=== PATIENT | female | born 1965 | race Caucasian/White ===

== ENCOUNTER → 2017-01-21 | Outpatient (CLI) | payer BC ==
--- NOTE | 2017-01-21 09:39 | BD ---
EXAMINATION TYPE: MG DEXA axial skeleton. DATE OF EXAM: 01/21/2017 8:45 AM COMPARISON: NONE CLINICAL HISTORY: Z13.820 BONE DENSITY SCREENING Height: 63.5 Weight: 152 FRAX RISK QUESTIONS: Alcohol (3 or more units per day): NO Family History (Parent hip fracture): NO FRACTURES Glucocorticoids (More than 3mos): NO (Ex: prednisone, prednisolone, methylprednisolone, dexamethasone, and hydrocortisone). History of Fracture in Adulthood: NO Secondary Osteoporosis: NO 1. Type 1 Diabetes: NO 2. Hyperthyroidism: NO 3. Menopause before 45: NO 4. Malnutrition: NO 5. Chronic liver disease: NO Rheumatoid Arthritis: NO Current Tobacco Use: YES RISK FACTORS HISTORY OF: Family History of Osteoporosis: YES, HER MOTHER...BUT NO BROKEN HIP Smoke tobacco: YES, 1/2 PAC DAILY Drink Alcohol: SOCIAL Active: YES Diet low in dairy products/other sources of calcium: NO Postmenopausal woman: YES AT AGE 48 Adrenal Insufficiency: NO MEDICATIONS: Additional Medications: CALCIUM AND VIT D, LEXAPRO, Additional History: NOTHING TO NOTE EXAM MEASUREMENTS: Bone mineral densitometry was performed using the [employer] System. Bone mineral density as measured about the Lumbar spine is: ----- L1-L4(G/cm2): 1.025 T Score Values are as follows: ----- L1: -0.9 ----- L2: -1.9 ----- L3: -1.4 ----- L4: -1.3 ----- L1-L4: -1.3 Bone mineral density BASELINE STUDY FOR HER Bone mineral density about the R hip (g/cm2): 0.818 Bone mineral density about the L hip (g/cm2): 0.861 T Score values are as follows: -----R Neck: -1.9 -----L Neck: -1.9 -----R Intertrochanter: -1.6 -----L Intertrochanter: -1.3 Bone mineral density FIRST BONE DENSITY TEST FOR HER.....BASELINE FRAX %'S: 6.5% FOR MAJOR OSTEOPOROTIC FX AND 1.3% FOR A HIP FX: PROBABILITY OF FX IN 10 YRS TIME IMPRESSION: Osteopenia (T Score between -2.5 and -1 as noted by T score values There is slightly increased risk of fracture and the patient may be considered for treatment. Re-Screen 1-2 years. FOR BOTH OF HER HIPS AND L2 TO L4 OF HER LUMBAR SPINE NOTE: T-SCORE=SD OF THE YOUNG ADULT MEAN.
--- NOTE | 2017-01-22 11:58 | MM ---
Reason for exam: screening (asymptomatic). Last mammogram was performed 1 year ago. History: Patient is postmenopausal. Family history of breast cancer in maternal aunt at age 60. Took hormonal contraceptives for 2 years. Physical Findings: A clinical breast exam by your physician is recommended on an annual basis and results should be correlated with mammographic findings. MG Screening Mammo w CAD Bilateral CC and MLO view(s) were taken. Prior study comparison: January 17, 2016, bilateral MG screening mammo w CAD. December 22, 2014, bilateral MG screening mammo w CAD. August 06, 2011, bilateral digital screening mammo w/CAD. The breast tissue is heterogeneously dense. This may lower the sensitivity of mammography. No significant changes when compared with prior studies. ASSESSMENT: Negative, BI-RAD 1 RECOMMENDATION: Routine screening mammogram of both breasts in 1 year.
== END | disposition home or self-care (01) ==
LOC: RADMAMWWP 07:59
PROVIDERS: ATTEND Obstetrics & Gynecology
DX: Z12.31 Encounter for screening mammogram for malignant neoplasm of breast (principal); Z13.820 Encounter for screening for osteoporosis; M85.80 Other specified disorders of bone density and structure, unspecified site
CPT/HCPCS: 77080; G0202

== ENCOUNTER → 2017-02-07 | Outpatient (CLI) | payer BC ==
--- NOTE | 2017-02-08 08:48 | XR ---
EXAMINATION TYPE: XR ribs RT w pa chest xray DATE OF EXAM: 02/07/2017 4:41 PM COMPARISON: NONE HISTORY: Pain TECHNIQUE: One view of the chest and 4 views of the right ribs are submitted. FINDINGS: Lungs are clear. No pleural effusion or pneumothorax. There is no consolidation. Biapical p leural thickening. No pleural effusion. There is deformity lateral margin of the right fifth rib. No pleural effusion or consolidation. Degenerative change of the spine. IMPRESSION: 1. Hairline minimally displaced fracture lateral margin right fifth rib
== END | disposition home or self-care (01) ==
LOC: RADXRYALE 16:24
PROVIDERS: ATTEND Family Medicine
DX: S22.31XA Fracture of one rib, right side, initial encounter for closed fracture (principal); S20.211A Contusion of right front wall of thorax, initial encounter

== ENCOUNTER → 2017-07-30 | Outpatient (CLI) | payer BC ==
--- NOTE | 2017-07-31 09:37 | US ---
EXAMINATION TYPE: US thyroid st tissue head/neck DATE OF EXAM: 07/30/2017 COMPARISON: NONE CLINICAL HISTORY: R59.1 Lymphadenopathy of Head/Neck. Vertigo [address] felt neck seemed swollen GLAND SIZE: Right Lobe: 5.1 x 2.0 x 2.4 cm Overall Parenchyma: heterogenous Left Lobe: 4.3 x 1.9 x 2.2 cm Overall Parenchyma: heterogeneous Isthmus Thickness: 0.5 cm NODULES RIGHT: # of nodules measured on right: 3 1. 0.9 X 0.7 x 0.7 cm echogenic solid nodule at the lower pole with well-defined margins; This nod ule is round and shows no intranodular vascularity. Prior size: no prior 2. 0.4 X 0.4 x 0.4 cm hypoechoic mixed nodule at the mid pole with well-defined margins; . This nod ule is wider than tall and shows no intranodular vascularity. Prior size: no prior 3. 0.3 X 0.4 x 0.5 cm mixed nodule at the upper pole with poorly defined margins; . This nodule is irregular and shows no intranodular vascularity. Prior size: no prior LEFT: # of nodules measured on left: 1. 0.5 X 0.5 x 0.4 cm solid nodule at the lower pole with poorly defined margins; . This nodule is round and shows no intranodular vascularity. Prior size: no prior ISTHMUS: # of nodules measured in the isthmus: 0 Bilateral neck scanned, no evidence of lymphadenopathy. Possible lymph nodes geraldine sub mandibular both sides look the same IMPRESSION: 1. Ill-defined subcentimeter nodules bilateral thyroid lobes.
== END | disposition home or self-care (01) ==
LOC: RADUSWWP 16:39
PROVIDERS: ATTEND Family Medicine
DX: E04.2 Nontoxic multinodular goiter (principal); R42 Dizziness and giddiness; F17.210 Nicotine dependence, cigarettes, uncomplicated
CPT/HCPCS: 76536

== ENCOUNTER → 2018-02-03 | Outpatient (CLI) | payer OTHER ==
--- NOTE | 2018-02-04 09:34 | MM ---
Reason for exam: screening (asymptomatic). Last mammogram was performed 1 year ago. History: Patient is postmenopausal. Family history of breast cancer in maternal aunt at age 60. Took hormonal contraceptives for 2 years. Physical Findings: A clinical breast exam by your physician is recommended on an annual basis and results should be correlated with mammographic findings. MG 3D Screening Mammo W/Cad Bilateral CC and MLO view(s) were taken. Prior study comparison: January 21, 2017, bilateral MG screening mammo w CAD. January 17, 2016, bilateral MG screening mammo w CAD. The breast tissue is heterogeneously dense. This may lower the sensitivity of mammography. There is no discrete abnormality. No significant changes when compared with prior studies. ASSESSMENT: Negative, BI-RAD 1 RECOMMENDATION: Routine screening mammogram of both breasts in 1 year.
== END | disposition home or self-care (01) ==
LOC: RADMAMWWP 10:39
PROVIDERS: ATTEND Obstetrics & Gynecology
DX: Z12.31 Encounter for screening mammogram for malignant neoplasm of breast (principal)
CPT/HCPCS: 77063; 77067

== ENCOUNTER → 2018-03-26 | Outpatient (CLI) | payer OTHER ==
--- NOTE | 2018-03-26 19:43 | MR ---
EXAMINATION TYPE: MR cervical spine wo con DATE OF EXAM: 03/26/2018 COMPARISON: NONE HISTORY: Neck and Left shoulder pain x6 months TECHNIQUE: Multiplanar, multisequence images of the cervical spine were acquired. C2-C3: No disc herniation or canal stenosis. Mild facet arthropathy in the left noted. C3-C4: There is an annular tear and focal right paracentral small disc herniation but no spinal cord contact. Mild facet arthropathy and uncovertebral joint hypertrophy contributes to mild bilateral for aminal encroachment. C4-C5: Degenerative disc disease and anterior hypertrophic spurring. Broad-based disc protrusion or s mall herniation with mild effacement of thecal sac. No foraminal encroachment. No Canal stenosis. C5-C6: Degenerative disc disease with hypertrophic spurring anteriorly. Broad-based disc protrusion w ith uncovertebral joint hypertrophy and facet arthropathy contributes to mild bilateral foraminal enc roachment and mild central stenosis. C6-C7: Degenerative disc disease with anterior hypertrophic spurring. There is a broad-based central disc protrusion or small herniation. No spinal cord contact. Mild bilateral foraminal encroachment wi th facet arthropathy. C7-T1: No evidence for degenerative disc disease. No disc bulge/herniation or protrusion. No Canal stenosis. Foramina are patent bilaterally. Cervical segments are intact. There is normal alignment. Cervical spinal cord is of normal signal. Craniovertebral junction relationships are within normal limits. There are lymph nodes seen bilater ally with short axis measurement of 1.1 cm. Subcentimeter left thyroid nodule noted. IMPRESSION: 1. Multilevel degenerative disc disease with the most marked findings at C5-6 and C6-C7. Disc protrus ion hypertrophic changes contribute to canal stenosis at C5-C6 with bilateral foraminal encroachment. 2. Disc protrusion or herniation noted at C3-C4, C4-C5 and C6-C7 as discussed above with multilevel f oraminal encroachment. 3. There is lymphadenopathy within the soft tissues of the neck measuring short axis of 1.1 cm the le ft correlate with CT soft tissue neck.
== END | disposition home or self-care (01) ==
LOC: RADMRIMAIN 18:34
PROVIDERS: ATTEND Physical Medicine & Rehabilitation
DX: M48.02 Spinal stenosis, cervical region (principal); M50.121 Cervical disc disorder at C4-C5 level with radiculopathy; M53.82 Other specified dorsopathies, cervical region; R59.0 Localized enlarged lymph nodes; M65.812 Other synovitis and tenosynovitis, left shoulder; M77.12 Lateral epicondylitis, left elbow
CPT/HCPCS: 72141

== ENCOUNTER → 2019-03-02 | Outpatient (CLI) | payer OTHER ==
--- NOTE | 2019-03-03 07:11 | US ---
EXAMINATION TYPE: US pelvis complete transvag DATE OF EXAM: 03/02/2019 COMPARISON: US 2013 CLINICAL HISTORY: R10.2 Pelvic and perineal pain. Pelvic pain x 2 years. Right ovary removed. TECHNIQUE: Transvaginal (TV) and Transabdominal (TA) . Transabdominal sonographic images of the pel vis were acquired. Transvaginal sonographic images were medically necessary to better assess the fol lowing anatomy: Left ovary. Date of LMP: 6 years prior EXAM MEASUREMENTS: Uterus: 5.8 x 3.2 x 2.3 cm Endometrial Stripe: 0.19 cm Right Ovary: Removed cm Left Ovary: Not visualized. cm 1. Uterus: Anteverted Anechoic areas seen in cervix. 2. Endometrium: Limited in visualization. 3. Right Ovary: Surgically absent 4. Left Ovary: Obscured by overlying bowel gas. 5. Bilateral Adnexa: wnl 6. Posterior cul-de-sac: wnl IMPRESSION: 1. No significant abnormality appreciated. Postoperative changes of left-sided oophorectomy
== END | disposition home or self-care (01) ==
LOC: RADUSWWP 15:55
PROVIDERS: ATTEND Obstetrics & Gynecology
DX: R10.2 Pelvic and perineal pain (principal); Z90.721 Acquired absence of ovaries, unilateral
CPT/HCPCS: 76830; 76856

== ENCOUNTER → 2019-03-23 | Outpatient (CLI) | payer OTHER ==
--- NOTE | 2019-03-23 18:10 | BD ---
EXAMINATION TYPE: Axial Bone Density DATE OF EXAM: 03/23/2019 COMPARISON: 01/21/2017 CLINICAL HISTORY: 53-year-old female osteopenia Height: 63.2 IN Weight: 162 LBS FRAX RISK QUESTIONS: Secondary Osteoporosis: Current Tobacco Use: YES RISK FACTORS HISTORY OF: Active: YES Postmenopausal woman: AGE 46 MEDICATIONS: Additional Medications: CALCIUM, VIT D, EXAM MEASUREMENTS: Bone mineral densitometry was performed using the [employer] System. Bone mineral density as measured about the Lumbar spine is: ----- L1-L4(G/cm2): 1.000 T Score Values are as follows: ----- L2: -2.1 ----- L3: -0.9 ----- L4: -1.4 ----- L1-L4: -1.5 Bone mineral density has: Increased 0.7% since study of: 01/21/2017 Bone mineral density about the R hip (g/cm2): 0.788 Bone mineral density about the L hip (g/cm2): 0.750 T Score values are as follows: -----R Neck: -1.8 -----L Neck: -2.1 -----R Total: -1.6 -----L Total: -1.4 Bone mineral density has: Decreased -2.5% since study of: 01/21/2017 IMPRESSION: Osteopenia (T Score between -2.5 and -1). There is slightly increased risk of fracture and the patient may be considered for treatment. Re-Screen 2-5 years. NOTE: T-SCORE=SD OF THE YOUNG ADULT MEAN.
--- NOTE | 2019-03-25 11:29 | MM ---
Reason for exam: screening (asymptomatic). Last mammogram was performed 1 year and 2 months ago. History: Patient is postmenopausal. Family history of breast cancer in maternal aunt at age 60. Took hormonal contraceptives for 2 years. Physical Findings: A clinical breast exam by your physician is recommended on an annual basis and results should be correlated with mammographic findings. MG 3D Screening Mammo W/Cad Bilateral CC and MLO view(s) were taken. Prior study comparison: February 03, 2018, bilateral MG 3d screening mammo w/cad. January 21, 2017, bilateral MG screening mammo w CAD. There are scattered fibroglandular densities. New small grouped calcifications right upper outer quadrant, suspect early oil cyst calcifications on 3D MLO view images, 6 months follow up recommended. No significant changes when compared with prior studies. ASSESSMENT: Probably benign, BI-RAD 3 RECOMMENDATION: Follow-up diagnostic mammogram of the right breast in 6 months. (include lateral view)
== END | disposition home or self-care (01) ==
LOC: RADMAMWWP 09:56
PROVIDERS: ATTEND Obstetrics & Gynecology
DX: Z12.31 Encounter for screening mammogram for malignant neoplasm of breast (principal); M85.80 Other specified disorders of bone density and structure, unspecified site; Z80.3 Family history of malignant neoplasm of breast
CPT/HCPCS: 77063; 77067; 77080

== ENCOUNTER → 2020-06-29 | Outpatient (CLI) | payer OTHER ==
--- NOTE | 2020-07-05 11:38 | MM ---
Reason for exam: additional evaluation requested from prior study. Last mammogram was performed 1 year and 3 months ago. History: Patient is postmenopausal. Family history of breast cancer in maternal aunt at age 60. Took hormonal contraceptives for 2 years. Physical Findings: Nurse did not find any significant physical abnormalities on exam. MG 3D Diag Mammo W/Cad ENRIKE Bilateral CC and MLO view(s) were taken. Prior study comparison: March 23, 2019, bilateral MG 3d screening mammo w/cad. February 03, 2018, bilateral MG 3d screening mammo w/cad. There are scattered fibroglandular densities. No significant new findings when compared with previous films. These results were verbally communicated with the patient and result sheet given to the patient on 06/29/20. ASSESSMENT: Benign, BI-RAD 2 RECOMMENDATION: Routine screening mammogram of both breasts in 1 year.
== END | disposition home or self-care (01) ==
LOC: RADMAMWWP 14:04
PROVIDERS: ATTEND Obstetrics & Gynecology
DX: R92.8 Other abnormal and inconclusive findings on diagnostic imaging of breast (principal)
CPT/HCPCS: 77062; 77066

== ENCOUNTER → 2021-07-20 | Outpatient (CLI) | payer OTHER ==
--- NOTE | 2021-07-24 11:55 | MM ---
Reason for exam: screening (asymptomatic). Last mammogram was performed 1 year and 1 month ago. History: Patient is postmenopausal. Family history of breast cancer in maternal aunt at age 60. Took hormonal contraceptives for 2 years. Physical Findings: A clinical breast exam by your physician is recommended on an annual basis and results should be correlated with mammographic findings. MG 3D Screening Mammo W/Cad Bilateral CC and MLO view(s) were taken. Prior study comparison: June 29, 2020, bilateral MG 3d diag mammo w/cad ENRIKE. March 23, 2019, bilateral MG 3d screening mammo w/cad. There are scattered fibroglandular densities. No significant changes when compared with prior studies. ASSESSMENT: Negative, BI-RAD 1 RECOMMENDATION: Routine screening mammogram of both breasts in 1 year.
== END | disposition home or self-care (01) ==
LOC: RADMAMWWP 08:04
PROVIDERS: ATTEND Obstetrics & Gynecology
DX: Z12.31 Encounter for screening mammogram for malignant neoplasm of breast (principal); M85.88 Other specified disorders of bone density and structure, other site; Z80.3 Family history of malignant neoplasm of breast
CPT/HCPCS: 77063; 77067

== ENCOUNTER → 2022-07-26 | Outpatient (CLI) | payer BC ==
--- NOTE | 2022-07-27 08:50 | MM ---
Reason for Exam: Screening (asymptomatic). Last mammogram was performed 1 year(s) and 1 month(s) ago. Patient History: Menarche at age 12. First Full-Term at age 22. Right ovary removed at age 26. Hysterectomy at age 48. Postmenopausal. Patient used Hormonal Contraceptives for 2 years. Maternal aunt had breast cancer, age 60. Risk Values: Jenny 5 year model risk: 1.1%. NCI Lifetime model risk: 7.1%. Prior Study Comparison: 03/23/2019 Bilateral Screening Mammogram, [facility]. 06/29/2020 Bilateral Diagnostic Mammogram, [facility]. 07/20/2021 Bilateral Screening Mammogram, [facility]. Tissue Density: There are scattered fibroglandular densities. Findings: Analyzed By CAD. Pattern appears symmetrical. Chronic nodularity is on the right. No suspicious groups of microcalcifications, spiculated or lobular masses, architectural distortion or other secondary signs of malignancy are mammographically apparent. Overall Assessment: Benign, BI-RAD 2 Management: Screening Mammogram of both breasts in 1 year. A negative mammogram report should not preclude additional follow up of suspicious palpable abnormalities. Patient should continue monthly self breast exam. A clinical breast exam by your physician is recommended on an annual basis and results should be correlated with mammographic findings. Electronically signed and approved by: Juan M Frias D.O. Radiologis
== END | disposition home or self-care (01) ==
LOC: RADMAMWWP 13:08
PROVIDERS: ATTEND Obstetrics & Gynecology
DX: Z12.31 Encounter for screening mammogram for malignant neoplasm of breast (principal)
CPT/HCPCS: 77063; 77067

== ENCOUNTER → 2022-09-03 | Outpatient (CLI) | payer BC ==
--- NOTE | 2022-09-04 09:06 | XR ---
EXAMINATION TYPE: XR elbow complete RT DATE OF EXAM: 09/03/2022 COMPARISON: NONE HISTORY: Pain FINDINGS: Three views of the elbow demonstrate no pathologic joint effusion. The osseous structures are intact . There is no acute fracture or dislocation. IMPRESSION: 1. No acute fracture or dislocation. If symptoms persist follow-up study in 7 to 10 days could be ob tained.
--- NOTE | 2022-09-04 09:06 | XR ---
EXAMINATION TYPE: XR shoulder complete RT DATE OF EXAM: 09/03/2022 COMPARISON: NONE HISTORY: Pain TECHNIQUE: Three views are submitted. FINDINGS: The osseous structures are intact. There is no acute fracture or dislocation. There is narrowing of the AC joint.. IMPRESSION: 1. AC joint arthropathy consider follow-up MRI.
== END | disposition home or self-care (01) ==
LOC: RADXRYALE 15:15
PROVIDERS: ATTEND Physician Assistant
DX: M12.811 Other specific arthropathies, not elsewhere classified, right shoulder (principal); M79.601 Pain in right arm

== ENCOUNTER → 2025-06-08 | Outpatient (CLI) | payer BC ==
--- NOTE | 2025-06-08 10:07 | MM ---
Reason for Exam: Screening (asymptomatic). Last mammogram was performed 2 year(s) and 10 month(s) ago. Patient History: Menarche at age 12. First Full-Term at age 22. Right ovary removed at age 26. Hysterectomy at age 48. Postmenopausal. Patient used Hormonal Contraceptives for 2 years. Maternal aunt had breast cancer, age 60. Risk Values: Jenny 5 year model risk: 1.3%. NCI Lifetime model risk: 6.6%. Prior Study Comparison: 06/29/2020 Bilateral Diagnostic Mammogram, [facility]. 07/20/2021 Bilateral Screening Mammogram, [facility]. 07/26/2022 Bilateral MG 3D screening mammo w/cad, [facility]. Tissue Density: The breasts are heterogeneously dense, which may obscure small masses. Findings: Analyzed By CAD. There is no suspicious group of microcalcifications or new suspicious mass in either breast. Overall Assessment: Negative, BI-RAD 1 Management: Screening Mammogram of both breasts in 1 year. . Patient should continue monthly self-breast exams. A clinical breast exam by your physician is recommended on an annual basis. This exam should not preclude additional follow-up of suspicious palpable abnormalities. Note on Jenny scores and lifetime risk: 1. A Jenny score greater than 3% is considered moderate risk. If this is the case, consider specialist referral to assess eligibility for a risk reducing agent. 2. If overall lifetime risk for the development of breast cancer is 20% or higher, the patient may qualify for future screening with alternating mammogram and breast MRI. [facility], , 06/08/2025 10:04 AM. Electronically signed and approved by: Manolo Suárez M.D. Radiologis
== END | disposition home or self-care (01) ==
LOC: RADMAMWWP 08:54
PROVIDERS: ATTEND Family Medicine
DX: Z12.31 Encounter for screening mammogram for malignant neoplasm of breast (principal); R92.333 Mammographic heterogeneous density, bilateral breasts; Z78.0 Asymptomatic menopausal state; Z80.3 Family history of malignant neoplasm of breast; Z92.0 Personal history of contraception
CPT/HCPCS: 77063; 77067